=== PATIENT | female | born 1955 | race Caucasian/White ===

== ENCOUNTER 2016-07-03 08:10 | Outpatient (CLI) | payer OTHER | END 2016-07-03 08:11 | DX: I10 Essential (primary) hypertension (principal); E78.5 Hyperlipidemia, unspecified; E03.9 Hypothyroidism, unspecified ==

== ENCOUNTER 2016-09-19 08:20 | Outpatient (CLI) | payer OTHER ==
--- NOTE | 2016-09-19 11:32 | Ultrasound Report ---
COMPLETE ABDOMINAL ULTRASOUND: 09/19/2016 CLINICAL HISTORY: Elevated liver enzymes. COMPARISON: 01/13/2010 FINDINGS: The liver demonstrates mildly hyperechoic homogeneous parenchymal pattern consistent with benign fatty infiltration of the liver. There is an area of fat sparing adjacent to the gallbladder. This was seen on preceding exam. It is unchanged and measures 0.5 cm. Liver length is 18.3 cm. Gallbladder shows no wall thickening or calculi. Common bile duct measures 5 mm and is within normal limits. Pancreas is normal. Right kidney measures 10.9 cm. There is a small echogenic structure within the anterior inferior asp ect of the right kidney that measures 2-3 mm. It shows a twinkling artifact on color Doppler and is, therefore, suspicious for a tiny calculus. Left kidney measures 11 cm and once again shows a normal column of Sarwat upper and lower pole moieties of a duplicated pyelocaliceal system. Spleen is within normal limits with a length of 10.7 cm. Abdominal aorta shows no aneurysm. It has normal diameters throughout its extent. Inferior vena cav a appears normal. IMPRESSION: 1. NO CHANGE IS NOTED COMPARED TO PRECEDING ULTRASOUND OF 01/13/2010 WITH MILD HEPATOMEGALY RELAT ED TO BENIGN FATTY INFILTRATION OF THE LIVER. 2. SUGGESTION OF A 2-3 MM CALCULUS IN THE ANTERIOR INFERIOR ASPECT OF THE RIGHT KIDNEY. :9 JOB #: [id number] EXT JOB #:[id number]
== END 2016-09-19 08:21 | disposition home or self-care (01) ==
LOC: DI 08:20
PROVIDERS: ATTEND Family Medicine
DX: K76.0 Fatty (change of) liver, not elsewhere classified (principal)
CPT/HCPCS: 76700

== ENCOUNTER 2016-10-27 08:25 | Outpatient (CLI) | payer OTHER ==
--- NOTE | 2016-10-30 16:19 | Mammography Report ---
DIGITAL SCREENING MAMMOGRAM: 10/27/2016 CLINICAL INDICATION: A 61-year-old nulliparous patient, for screening. COMPARISON: 12/2014, 02/2011, 12/2009, 12/2008, 12/2007, 11/2006. TECHNIQUE: Routine CC and MLO projections were obtained of the breasts. FINDINGS: Parenchymal tissue within the breasts is predominantly fatty replaced. There are no domina nt masses, suspicious microcalcifications, or secondary signs of malignancy. In comparison to the pre vious studies, there are no significant changes. IMPRESSION: NO MAMMOGRAPHIC EVIDENCE OF MALIGNANCY. NO SIGNIFICANT INTERVAL CHANGES. RECOMMENDATION: Screening mammography is recommended annually. BIRADS category 1 - negative. STANDARD QUALIFYING STATEMENTS 1. This examination was reviewed with the aid of Computed-Aided Detection (CAD). 2. A negative or benign imaging report should not delay biopsy if clinically suspicious findings are present. Consider surgical consultation if warranted. More than 5% of cancers are not identified by i maging. 3. Dense breasts may obscure an underlying neoplasm. JOB #: [id number] EXT JOB #:[id number]
== END 2016-10-27 08:26 | disposition home or self-care (01) ==
LOC: DI 08:25
PROVIDERS: ATTEND Family Medicine
DX: Z12.31 Encounter for screening mammogram for malignant neoplasm of breast (principal)
CPT/HCPCS: 77067

== ENCOUNTER 2017-03-29 09:59 | Day surgery (SDC) | payer OTHER ==
[2017-03-29] MEDS ORDERED: LACTATED RINGERS 1,000 ML IV ONE (10:54)
[2017-03-29] MEDS ORDERED: MIDAZOLAM 2 MG/2 ML VIAL IVP ONE (11:50)
[2017-03-29] MEDS ORDERED: fentaNYL 100 MCG/2 ML VIAL IVP ONE (11:50)
[2017-03-29 12:48] VITALS: BP 137/66
== END 2017-03-29 10:00 | disposition home or self-care (01) ==
LOC: SDS 09:59
PROVIDERS: ATTEND Surgery
PROC: 0DJD8ZZ Inspection of Lower Intestinal Tract, Via Natural or Artificial Opening Endoscopic (ICD-10-PCS; principal; 2017-03-29 11:30)
DX: Z12.11 Encounter for screening for malignant neoplasm of colon (principal); Z85.038 Personal history of other malignant neoplasm of large intestine; Z98.0 Intestinal bypass and anastomosis status; K64.8 Other hemorrhoids; I10 Essential (primary) hypertension; E78.5 Hyperlipidemia, unspecified
CPT/HCPCS: 45378; J7120

== ENCOUNTER 2018-06-19 07:20 | Outpatient (CLI) | payer OTHER ==
[2018-06-19 12:50] LABS: BASOPHILS % (AUTO) 0.5 %; EOSINOPHILS # (AUTO) 0.4 10^3/uL (0.0-0.7); HGB - HEMOGLOBIN 13.2 g/dL (12.0-16.0); LYMPHOCYTES % (AUTO) 35.2 %; MEAN CORPUSCULAR HEMOGLOBIN 31.1 pg (27.0-31.0); MEAN CORPUSCULAR HGB CONC 32.7 g/dL (32.0-36.0); MEAN CORPUSCULAR VOLUME 95.2 fL (81.0-99.0); MEAN PLATELET VOLUME 8.8 fL (7.9-10.8); MONOCYTES # (AUTO) 0.5 10^3/uL (0.0-1.0); MONOCYTES % (AUTO) 8.2 %; NEUTROPHILS # (AUTO) 2.7 10^3/uL (1.5-6.6); NEUTROPHILS % (AUTO) 48.1 %; PLT - PLATELET COUNT 207 10^3/uL (130-450); RED BLOOD COUNT 4.24 10^6/uL (4.20-5.40); RED CELL DISTRIBUTION WIDTH 13.1 % (12.0-15.0); WHITE BLOOD COUNT 5.6 x10^3/uL (4.8-10.8)
[2018-06-19 13:28] LABS: ALBUMIN 3.8 g/dL (3.2-5.5); ALBUMIN/GLOBULIN RATIO 1.3 (1.0-2.2); ALKALINE PHOSPHATASE 56 IU/L (42-121); ALT ALANINE AMINOTRANSFERASE 38 IU/L (10-60); AST ASPARTATE AMINOTRANSFERASE 38 IU/L (10-42); BILIRUBIN,TOTAL 0.4 mg/dL (0.2-1.0); BUN - BLOOD UREA NITROGEN 13 mg/dL (6-20); CARBON DIOXIDE - CO2 21 mmol/L (21-32); CHLORIDE 107 mmol/L (101-111); CHOL/HDL RATIO 3.5 (<4.4); CHOLESTEROL 138 mg/dL; CREATININE 0.3 mg/dL (0.4-1.0); GFR - MDRD 225 (>89); GLUCOSE 104 mg/dL (70-100); HDL CHOLESTEROL 40 mg/dL; LDL CHOLESTEROL,CALCULATED 80 mg/dL; SODIUM 139 mmol/L (135-145); TOTAL PROTEIN 6.7 g/dL (6.7-8.2); VLDL CHOLESTEROL 18 mg/dL
== END 2018-06-19 07:21 | disposition home or self-care (01) ==
LOC: LAB.WCP 07:20
PROVIDERS: ATTEND Family Medicine
DX: E78.5 Hyperlipidemia, unspecified (principal); E03.9 Hypothyroidism, unspecified; I10 Essential (primary) hypertension
CPT/HCPCS: 36415; 80053; 80061; 83721; 84443; 85025

== ENCOUNTER 2019-05-22 07:44 | Outpatient (CLI) | payer BC, OTHER ==
--- NOTE | 2019-05-26 13:18 | Mammography Report ---
Reason: ROUTINE MAMMO Procedure Date: 05/22/2019 Accession Number: [id number] / [id number] Procedure: [place] - Screening Mammo w/Mathew CPT Code: Final Report FULL RESULT: EXAM: Screening Mammo w/Amthew DATE: 05/22/2019 8:29 AM CLINICAL HISTORY: Screening encounter. History of nulliparity. TECHNIQUE: (B) - Bilateral CC and MLO views were obtained. A cleavage view is obtained. COMPARISON: 10/27/2016 through 01/13/2010. PARENCHYMAL PATTERN: (F) - The breast(s) demonstrate(s) diffuse fatty replacement. FINDINGS: There are no suspicious masses, calcifications, or areas of distortion. IMPRESSION: Negative examination. BI-RADS category 1. RECOMMENDATION: (ANNUAL) - Recommend routine annual screening mammography. BI-RADS CATEGORY: (1) - Negative. STANDARD QUALIFYING STATEMENTS: 1. This examination was not reviewed with the aid of Computer-Aided Detection (CAD). 2. A negative or benign imaging report should not preclude biopsy if clinically suspicious findings are present. 3. Dense breasts may obscure an underlying neoplasm. 4. This examination was reviewed with the aid of 3D breast imaging (tomosynthesis).
== END 2019-05-22 07:45 | disposition home or self-care (01) ==
LOC: DI 07:44
PROVIDERS: ATTEND Family Medicine
DX: Z12.31 Encounter for screening mammogram for malignant neoplasm of breast (principal)
CPT/HCPCS: 77063; 77067

== ENCOUNTER 2020-05-05 07:17 | Outpatient (CLI) | payer BC ==
[2020-05-05 08:08] LABS: BASOPHILS % (AUTO) 0.6 %; EOSINOPHILS # (AUTO) 0.4 10^3/uL (0.0-0.7); EOSINOPHILS % (AUTO) 6.1 %; HGB - HEMOGLOBIN 13.8 g/dL (12.0-16.0); LYMPHOCYTES # (AUTO) 2.1 10^3/uL (1.5-3.5); LYMPHOCYTES % (AUTO) 33.6 %; MEAN CORPUSCULAR HEMOGLOBIN 30.9 pg (27.0-31.0); MEAN CORPUSCULAR HGB CONC 32.2 g/dL (32.0-36.0); MEAN CORPUSCULAR VOLUME 96.2 fL (81.0-99.0); MEAN PLATELET VOLUME 9.8 fL (7.9-10.8); MONOCYTES # (AUTO) 0.6 10^3/uL (0.0-1.0); MONOCYTES % (AUTO) 9.3 %; NEUTROPHILS # (AUTO) 3.2 10^3/uL (1.5-6.6); NEUTROPHILS % (AUTO) 49.9 %; PLT - PLATELET COUNT 211 10^3/uL (130-450); RED BLOOD COUNT 4.46 10^6/uL (4.20-5.40); RED CELL DISTRIBUTION WIDTH 12.3 % (12.0-15.0); WHITE BLOOD COUNT 6.4 x10^3/uL (4.8-10.8)
[2020-05-05 08:15] LABS: ALBUMIN 4.2 g/dL (3.2-5.5); ALBUMIN/GLOBULIN RATIO 1.5 (1.0-2.2); ALKALINE PHOSPHATASE 64 IU/L (42-121); ALT ALANINE AMINOTRANSFERASE 53 IU/L (10-60); AST ASPARTATE AMINOTRANSFERASE 31 IU/L (10-42); BILIRUBIN,TOTAL 0.5 mg/dL (0.2-1.0); BUN - BLOOD UREA NITROGEN 17 mg/dL (6-20); CALCIUM 9.6 mg/dL (8.5-10.3); CARBON DIOXIDE - CO2 24 mmol/L (21-32); CHLORIDE 104 mmol/L (101-111); CHOL/HDL RATIO 3.5 (<4.4); CHOLESTEROL 149 mg/dL; CREATININE 0.8 mg/dL (0.4-1.0); GLUCOSE 103 mg/dL (70-100); HDL CHOLESTEROL 43 mg/dL; LDL CHOLESTEROL,CALCULATED 84 mg/dL; SODIUM 137 mmol/L (135-145); VLDL CHOLESTEROL 22 mg/dL
== END 2020-05-05 07:18 | disposition home or self-care (01) ==
LOC: LAB 07:17
PROVIDERS: ATTEND Family Medicine
DX: R74.8 Abnormal levels of other serum enzymes (principal); C18.7 Malignant neoplasm of sigmoid colon; I10 Essential (primary) hypertension; E78.5 Hyperlipidemia, unspecified; E03.9 Hypothyroidism, unspecified
CPT/HCPCS: 36415; 80053; 80061; 82378; 83721; 84443; 85025

== ENCOUNTER 2020-07-12 07:30 | Outpatient (CLI) | payer BC ==
--- NOTE | 2020-07-12 12:47 | Ultrasound Report ---
PROCEDURE: Abdomen Limited INDICATIONS: HERNIA TECHNIQUE: Real-time focused scanning was performed of the abdomen, with image documentation. COMPARISON: CT abdomen pelvis 02/02/2017 FINDINGS: Sonographic images at the level of the umbilicus demonstrate a periumbilical fat-containin g hernia. There also appears to be herniation of a nondilated bowel loop. Similar appearance was iden tified in 2017. IMPRESSION: Periumbilical hernia containing fat and nondilated bowel loop. Reviewed by: Quynh Echevarria MD on 07/12/2020 12:45 PM PDT Approved by: Quynh Echevarria MD on 07/12/2020 12:45 PM PDT Station ID: [id number]
== END 2020-07-12 07:31 | disposition home or self-care (01) ==
LOC: DI 07:30
PROVIDERS: ATTEND Nurse Practitioner Family
DX: K42.9 Umbilical hernia without obstruction or gangrene (principal)

== ENCOUNTER 2020-07-21 08:20 | Outpatient (CLI) | payer BC ==
--- NOTE | 2020-07-22 07:46 | Mammography Report ---
BILATERAL DIGITAL SCREENING MAMMOGRAM 3D/2D: 07/21/2020 CLINICAL: Routine screening. Comparison is made to exams dated: 05/22/2019 mammogram, 10/27/2016 mammogram, 12/29/2014 mammogram, 01/2011 mammogram, and 01/13/2010 mammogram - [facility]. The tissue of both breast s is predominantly fatty. No significant masses, calcifications, or other findings are seen in either breast. There has been no significant interval change. IMPRESSION: NEGATIVE There is no mammographic evidence of malignancy. A 1 year screening mammogram is recommended. This exam was interpreted at Station ID: [id number]. NOTE: For mammograms, a report in lay terms will be sent to the patient. Approximately 15% of breast malignancies will not be visualized mammographically. In the management of a palpable breast mass, a negative mammogram must not discourage biopsy of a clinically suspicious lesion. Electronically Signed By: Jose Ledesma M.D., jr/penrad:07/21/2020 09:30:48 ACR BI-RADS Category 1: Negative 3341F PARENCHYMAL PATTERN: (F) - The breast(s) demonstrate(s) diffuse fatty replacement. BI-RADS CATEGORY: (1) - 1 RECOMMENDATION: (ANNUAL) - Recommend routine annual screening mammography. [id number] 1 year screening LATERALITY: (B)
== END 2020-07-21 08:21 | disposition home or self-care (01) ==
LOC: DI.N 08:20
DX: Z12.31 Encounter for screening mammogram for malignant neoplasm of breast (principal)

== ENCOUNTER 2021-03-14 06:09 | Day surgery (SDC) | payer BC ==
[2021-03-14] MEDS ORDERED: CEFAZOLIN SODIUM IN 0.9 % NACL 2 GM/100 ML BAG IV ONE (06:20)
[2021-03-14] MEDS ORDERED: LACTATED RINGERS 1,000 ML IV ONE ×2 (06:21→09:45)
[2021-03-14] MEDS ORDERED: MIDAZOLAM 2 MG/2 ML VIAL ONE (07:02)
[2021-03-14] MEDS ORDERED: fentaNYL 100 MCG/2 ML VIAL ONE ×2 (07:02→09:32)
[2021-03-14] MEDS ORDERED: PROPOFOL 200 MG/20 ML VIAL IVP ONE (07:03)
[2021-03-14] MEDS ORDERED: LIDOCAINE-MPF 2% 5 ML VIAL ONE (07:03)
[2021-03-14] MEDS ORDERED: ROCURONIUM 50 MG/5 ML VIAL ONE (07:03)
--- NOTE | 2021-03-14 07:14 | ANESTHESIA ---
Pre-Anesthesia VS, & Labs - Diagnosis Incisional hernia - Procedure laparoscopic incisional hernia repair Vital Signs: Temp Pulse Resp BP Pulse Ox 36.7 C 61 20 161/70 H 95 03/14/21 06:32 03/14/21 06:32 03/14/21 06:32 03/14/21 06:32 03/14/21 06:32 Height: 5 ft 5 in Weight (kg): 111.3 kg Body Mass Index: 40.8 BMI Classification: Morbidly Obese - NPO >8 hours - Is Patient ?: No - Lab Results Lab results reviewed: Yes Home Medications and Allergies Atorvastatin Calcium 20 mg PO DAILY 09/09/12 Levothyroxine [Synthroid] 50 mcg PO QDAC 09/09/12 lisinopriL [Prinivil] 20 mg PO DAILY 09/09/12 Multivitamin [Multi-Vitamin Daily] 1 each PO DAILY 08/26/13 Allergies/Adverse Reactions: Allergies Allergy/AdvReac Type Severity Reaction Status Date / Time No Known Drug Allergies Allergy Verified 03/14/21 06:56 Anes History & Medical History - Anesthetic History Anesthesia Complications: reports: No previous complications Family history of Anesthesia Complications: Denies Family history of Malignant Hyperthermia: Denies - Medical History Cardiovascular: reports: Hypertension, High cholesterol Pulmonary: reports: None Gastrointestinal: reports: Colon polyps, Chronic diarrhea, Chronic constipation, Other Urinary: reports: Incontinence Musculoskeletal: reports: None Endocrine/Autoimmune: reports: HyPOthyroidism Skin: reports: Eczema, Rosacea - Surgical History General: reports: Appendectomy, Bowel surgery, Colonoscopy Eyes Ears Nose Throat (EENT): reports: Other Exam General: Alert, Oriented x3, Cooperative Dental: WNL Mouth Openin Fingerbreadth Neck Mobility: Normal Mallampati classification: III Thyromental Distance: 4-6 cm Respiratory: Lungs clear, Normal breath sounds, No respiratory distress Cardiovascular: Regular rate Neurological: Normal speech Mental/Cognitive Status: Alert/Oriented X3, Normal for patient Cognitive Status: Within normal limits Plan Anesthesia Type: General Consent for Procedure(s) Verified and Reviewed: Yes Code Status: Attempt Resuscitation ASA classification: 2-Mild systemic disease Is this case an emergency?: No
[2021-03-14] MEDS ORDERED: BUPIVACAINE 0.5% PF 10 ML VIAL ONE (07:20)
[2021-03-14] MEDS ORDERED: LIDOCAINE 2%-EPI 1:100000 20 ML MDV ONE (07:20)
[2021-03-14] MEDS ORDERED: DEXAMETHASONE 4 MG/ML VIAL ONE (08:23)
[2021-03-14] MEDS ORDERED: ONDANSETRON 4 MG/2 ML VIAL ONE (08:23)
[2021-03-14] MEDS ORDERED: METOCLOPRAMIDE 10 MG/2 ML VIAL IVP PRN (08:29)
[2021-03-14] MEDS ORDERED: ePHEDrine 50 MG/ML VIAL IVP PRN (08:29)
[2021-03-14] MEDS ORDERED: HYDROmorphone 0.5 MG/0.5 ML SYRINGE IVP PRN ×2 (08:29→14:30)
[2021-03-14] MEDS ORDERED: MORPHINE 2 MG/ML CARPUJECT IVP PRN (08:29)
[2021-03-14] MEDS ORDERED: NALOXONE 0.4 MG/ML VIAL IVP PRN (08:29)
[2021-03-14] MEDS ORDERED: fentaNYL 100 MCG/2 ML VIAL IVP PRN (08:29)
[2021-03-14] MEDS ORDERED: ATROPINE ABBOJECT 1 MG/10 ML SYRINGE IVP PRN (08:29)
[2021-03-14] MEDS ORDERED: ONDANSETRON 4 MG/2 ML VIAL IVP PRN ×2 (08:29→09:48)
[2021-03-14] MEDS ORDERED: ceFAZolin 1 GM VIAL ONE (08:40)
[2021-03-14] MEDS ORDERED: PHENYLEPHRINE 10 MG/ML VIAL ONE (08:47)
[2021-03-14] MEDS ORDERED: SUGAMMADEX 200 MG/2 ML VIAL IVP ONE (08:51)
[2021-03-14] MEDS ORDERED: LACTATED RINGERS 1,000 ML IV SCH (09:00)
[2021-03-14] MEDS ORDERED: ceFAZolin 1 GM VIAL IR ONE (09:11)
[2021-03-14] MEDS ORDERED: BUPIVACAINE 0.5% PF 10 ML VIAL SUBQ ONE (09:21)
[2021-03-14] MEDS ORDERED: LIDOCAINE MPF 2%-EPI 1:200000 20 ML VIAL SUBQ ONE (09:22)
[2021-03-14] MEDS ORDERED: KETOROLAC 30 MG/ML VIAL ONE (09:30)
--- NOTE | 2021-03-14 09:41 | OPERATIVE REPORT ---
Operative Report - General Procedure Date: 03/14/21 Planned Procedure: Lap Incisional Hernia Repair Pre-Op Diagnosis: Incisional Hernia Procedure Performed: Incisional Hernia Repair with Ventralight Mesh Post Op Diagnosis: Incisional Hernia - Procedure Note Primary Surgeon: Dougie Anesthesia Provider: JUJU Parra Pathology: None Estimated Blood Loss (mL): 10 Indications: Painful incisional hernia Findings: 4 cm umbilical defect containing omentum and a loop of small bowel Complications: None apparent - Other Other Information/Narrative: After obtaining informed consent, the patient was brought to the operating room and placed in the supine position on the operating table. Following successful induction of general endotracheal anesthesia, appropriate padding of all bony prominences and placement of appropriate monitors, the abdomen was prepped and draped in the standard surgical fashion. A Time Out was held per SCOPE protocol. All elements of the surgical safety checklist were followed before, during, and after the procedure. Following infiltration with local anesthetic to create a field block, an incision was create directly over the hernia near the umbilicus and carried through the skin and subcutaneous tissue to reveal the hernia sack and contents. Within this large hernia sack which was entered cautiously and without any inadvertent viscus injury, we noted a knuckle of small bowel and a portion of preperitoneal fat. With great care, this tissue was teased sharply from the surrounding structures using both scalpel and Metzenbaum scissors. The bowel appeared well vascularized and fully viable. The fascia was then dissected to its respective components to allow for the ultimate primary intraperitoneal repair. This procedure was selected due the size of the hernia and the patient's body habitus. A 12 mm trocar was placed through the defect and the abdomen was insufflated to 15mm of Hg pressure. The camera was placed in the abdominal cavity. DIagnostic laparoscopy revealed right upper quadrant and suprapubic adhesions an periumbilical adhesions. These were addressed sharply with laparoscopic scissors until the internal surface of the abdominal wall was free from adhesions with an appropriate surface for mesh placement. Following infiltration with local anesthetic, 4 5mm trocars were placed peripherally. One was placed in each upper quadrant and one in each lower quadrant under direct vision. A [employer] Ventralight ST 15 cm circlular implant was chosen for repair. It was rolled and placed through the centrally placed 12 mm port. The peripheral ports were utilized to straighten and flatten the mesh up against the abdominal wall. The scaffold suture was pulled taut via the 12 mm port and we noted good apposition of the mesh to the anterior abdominal wall. The mesh was then fixed to the abdominal wall with absorbable tacks, 30 in total. THis was performed sequentially through the 4 peripheral trocars in a 360 degree fashion. The scaffold suture was then released and the scaffolding removed via the right upper quadrant port. The abdomen was checked for hemostasis. It was irrigated with warm saline solution and aspirated free of all fluid and particulate matter. The trocars were then removed under direct vision and the abdomen was desufflated. The midline wound protector and trocar were then removed. This left a 4 cm defect with straight flat mesh at the base. The fascia was closed with interrupted 0 PDS sutures and the umbilicus reconstructed with 3-0 vicryl. The skin incisions were closed with monocryl and Dermabond was applied to the surface of all incisions. All sponge, needle, and instrument counts were correct at the conclusion of the case. The patient was allowed to awaken from anesthesia without difficulty and taken to the post anesthesia care unit in good condition.
[2021-03-14] MEDS ORDERED: oxyCODONE 5 MG TABLET PO PRN (09:48)
[2021-03-14] MEDS ORDERED: IBUPROFEN 600 MG TABLET PO PRN (09:48)
[2021-03-14] MEDS ORDERED: HYDROmorphone 0.5 MG/0.5 ML SYRINGE ONE (10:30)
--- NOTE | 2021-03-14 10:30 | ANESTHESIA POST OP EVALUATION ---
Anesthesia Post Eval - Post Anesthesia Eval Vitals: Last Vital Signs Temp 36.4 C L 03/14/21 10:15 Pulse 74 03/14/21 10:21 Resp 16 03/14/21 10:21 BP 129/59 L 03/14/21 10:21 Pulse Ox 95 03/14/21 10:21 CV Function Including HR & BP: Stable Pain Control: Satisfactory Nausea & Vomiting: Negative Mental Status: Baseline Respiratory Status: Airway Patent Hydration Status: Satisfactory Anesthesia Complications: None
[2021-03-14] MEDS: ACETAMINOPHEN 325 MG TABLET PO PRN ×2 (11:32→17:04)
[2021-03-14] MEDS ORDERED: KETOROLAC 30 MG/ML VIAL IVP PRN (14:13)
[2021-03-14] MEDS ORDERED: SODIUM CHLORIDE FLUSH 0.9% 10 ML SYRINGE IVP PRN (14:13)
--- NOTE | 2021-03-14 18:17 | PHARMACY PROGRESS NOTE ---
- Best Possible Medication History Admit Date and Time: Processed by: Nursing Medication History completed: Yes As the person ultimately responsible for medication therapy, providers are able to order a medication from an existing home medication list in [facility] via the "Reconcile Routine" prior to Confirmation of that medication by intelligence support officer. Such practice is discouraged except when the physician, in their clinical judgment, deems that a medical need exists for a medication without regard to previous use.
[2021-03-14] MEDS: SODIUM CHLORIDE FLUSH 0.9% 10 ML SYRINGE IVP SCH (18:47)
[2021-03-14] MEDS ORDERED: ATORVASTATIN 10 MG TABLET PO SCH (21:00)
[2021-03-15] MEDS: SODIUM CHLORIDE FLUSH 0.9% 10 ML SYRINGE IVP SCH ×2 (01:50→08:09)
[2021-03-15] MEDS: ACETAMINOPHEN 325 MG TABLET PO PRN (06:51)
[2021-03-15] MEDS ORDERED: PANTOPRAZOLE 40 MG TABLET PO SCH (07:00)
[2021-03-15] MEDS ORDERED: LEVOTHYROXINE 25 MCG TABLET PO SCH (07:00)
[2021-03-15] MEDS ORDERED: lisinopriL 20 MG TABLET PO SCH (09:00)
[2021-03-15] MEDS ORDERED: ENOXAPARIN 40 MG/0.4 ML SYRINGE SUBQ SCH (09:00)
--- NOTE | 2021-03-15 10:04 | Discharge Plan ---
Discharge Plan Problem Reviewed?: Yes Disposition: Home, Self Care Condition: Stable Prescriptions: oxyCODONE [Roxicodone] 5 mg PO Q4HR PRN #14 tablet PRN Reason: Pain Docusate Sodium 100Mg Capsule [Colace 100Mg Capsule] 200 mg PO DAILY #20 cap oxyCODONE [Roxicodone] 5 mg PO Q4-6H PRN #20 tablet PRN Reason: Pain Ondansetron Odt [Zofran Odt] 4 mg TL Q6H PRN #10 tablet PRN Reason: Nausea / Vomiting Diet: Regular Activity Restrictions: Additional Comments (5 pound lifting limit for 2 weeks) Shower Restrictions: No Driving Restrictions: Yes (Not while using narcotic meds) No Smoking: If you smoke, Please STOP! Call for help. Follow-up with: Kathy Munoz ARNP [Primary Care Provider] - Nazanin Constantino MD [Provider Admit Priv/Credential] -
--- NOTE | 2021-03-15 10:08 | DISCHARGE SUMMARY ---
"Discharge Summary Admit Date: 03/15/21 Discharge Date: 03/15/21 Discharging Provider: Dougie Primary Care Provider: Alexander Code Status: Attempt Resuscitation Condition at Discharge: Stable Discharge Disposition: 01 Home, Self Care - DIAGNOSES Admission Diagnoses: Incisional hernia Discharge Diagnoses with Status of Each Condition: Resolved - HPI History of Present Illness: Admitted yesterday for laparoscopic incisional hernia repair. Surgery was uneventful. Patient was admitted overnight for pain control and observation. - CONSULTS | PROCEDURES Procedures: Laparoscopic incisional hernia repair - HOSPITAL COURSE Hospital Course: Kathy has done very well. She is taking minimal pain medication and tolerating a regular diet. She has been walking the halls and is without nausea. She has been eating raisins which is her usual choice for stool softener. - ALLERGIES Allergies/Adverse Reactions: Allergies Allergy/AdvReac Type Severity Reaction Status Date / Time No Known Drug Allergies Allergy Verified 03/14/21 06:56 - MEDICATIONS Home Medications: Ambulatory Orders Medication Instructions Recorded Confirmed Atorvastatin Calcium 20 mg PO DAILY 09/09/12 03/14/21 Levothyroxine [Synthroid] 50 mcg PO QDAC 09/09/12 03/14/21 lisinopriL [Prinivil] 20 mg PO DAILY 09/09/12 03/14/21 Multivitamin [Multi-Vitamin Daily] 1 each PO DAILY 08/26/13 03/14/21 Docusate Sodium 100Mg Capsule 200 mg PO DAILY #20 cap 03/14/21 [Colace 100Mg Capsule] Ondansetron Odt [Zofran Odt] 4 mg TL Q6H PRN #10 tablet 03/14/21 oxyCODONE [Roxicodone] 5 mg PO Q4-6H PRN #20 tablet 03/14/21 Acetaminophen [Tylenol] 650 mg PO Q6H PRN tablet 03/15/21 Ibuprofen [Motrin] 600 mg PO Q6HR PRN tablet 03/15/21 oxyCODONE [Roxicodone] 5 mg PO Q4HR PRN #14 tablet 03/15/21 - PHYSICAL EXAM AT DISCHARGE General Appearance: positive: No acute distress, Alert Eyes Bilateral: positive: Normal inspection, PERRL, EOMI ENT: positive: ENT inspection nml, Pharynx nml, No signs of dehydration Neck: positive: Nml inspection, Thyroid nml, No JVD Respiratory: positive: Chest non-tender, No respiratory distress, Breath sounds nml Cardiovascular: positive: Regular rate & rhythm, No murmur Abdomen: positive: Nml bowel sounds, Tenderness (Appropriately tender in the post operative state) Skin: positive: Color nml Neurologic/Psychiatric: positive: Oriented x3 - QUALITY (Female Hip Fx Only) Was patient sent home on osteoporosis medication?: No - FOLLOW UP Follow Up: [address] Constantino - TIME SPENT Time Spent in Discharge (Minutes): 20"
[2021-03-15 10:48] VITALS: BP 157/63
== END 2021-03-15 11:07 | disposition home or self-care (01) ==
LOC: SDS 06:09 → MS2 10:50 → SDS 03-15 11:07
PROVIDERS: ATTEND Surgery
DX: K43.2 Incisional hernia without obstruction or gangrene (principal); E66.01 Morbid (severe) obesity due to excess calories; Z68.41 Body mass index [BMI] 40.0-44.9, adult
CPT/HCPCS: 49654; A9270; C1781; J0690; J1170; J1650; J7120

== ENCOUNTER 2021-05-09 08:00 | Outpatient (CLI) | payer BC ==
[2021-05-09 11:48] LABS: BASOPHILS % (AUTO) 0.5 %; EOSINOPHILS # (AUTO) 0.5 10^3/uL (0.0-0.7); HCT - HEMATOCRIT 41.7 % (37.0-47.0); HGB - HEMOGLOBIN 13.3 g/dL (12.0-16.0); LYMPHOCYTES # (AUTO) 2.2 10^3/uL (1.5-3.5); LYMPHOCYTES % (AUTO) 34.4 %; MEAN CORPUSCULAR HEMOGLOBIN 30.5 pg (27.0-31.0); MEAN CORPUSCULAR HGB CONC 31.9 g/dL (32.0-36.0); MEAN CORPUSCULAR VOLUME 95.6 fL (81.0-99.0); MEAN PLATELET VOLUME 10.3 fL (7.9-10.8); MONOCYTES # (AUTO) 0.6 10^3/uL (0.0-1.0); MONOCYTES % (AUTO) 9.5 %; NEUTROPHILS # (AUTO) 3.1 10^3/uL (1.5-6.6); NEUTROPHILS % (AUTO) 48.4 %; PLT - PLATELET COUNT 215 10^3/uL (130-450); RED BLOOD COUNT 4.36 10^6/uL (4.20-5.40); RED CELL DISTRIBUTION WIDTH 12.3 % (12.0-15.0); WHITE BLOOD COUNT 6.4 x10^3/uL (4.8-10.8)
[2021-05-09 12:27] LABS: ALBUMIN 4.2 g/dL (3.2-5.5); ALBUMIN/GLOBULIN RATIO 1.4 (1.0-2.2); ALKALINE PHOSPHATASE 62 IU/L (42-121); ALT ALANINE AMINOTRANSFERASE 47 IU/L (10-60); AST ASPARTATE AMINOTRANSFERASE 31 IU/L (10-42); BILIRUBIN,TOTAL 0.6 mg/dL (0.2-1.0); BUN - BLOOD UREA NITROGEN 16 mg/dL (6-20); CALCIUM 9.6 mg/dL (8.5-10.3); CARBON DIOXIDE - CO2 26 mmol/L (21-32); CHLORIDE 104 mmol/L (101-111); CHOL/HDL RATIO 3.4 (<4.4); CHOLESTEROL 158 mg/dL; CREATININE 0.8 mg/dL (0.4-1.0); GFR - MDRD 72 (>89); GLUCOSE 98 mg/dL (70-100); HDL CHOLESTEROL 46 mg/dL; LDL CHOLESTEROL,CALCULATED 92 mg/dL; POTASSIUM 4.2 mmol/L (3.5-5.0); SODIUM 139 mmol/L (135-145); TOTAL PROTEIN 7.1 g/dL (6.7-8.2); TRIGLYCERIDES 100 mg/dL; VLDL CHOLESTEROL 20 mg/dL
[2021-05-09 12:38] LABS: THYROID STIMULATING HORMONE 3.8 uIU/mL (0.34-5.60)
== END 2021-05-09 23:59 ==
LOC: LAB.WCP 08:00
PROVIDERS: ATTEND Nurse Practitioner Family
DX: R74.8 Abnormal levels of other serum enzymes (principal); C18.7 Malignant neoplasm of sigmoid colon; I10 Essential (primary) hypertension; E78.5 Hyperlipidemia, unspecified; E03.9 Hypothyroidism, unspecified
CPT/HCPCS: 36415; 80053; 80061; 82378; 83721; 84443; 85025

== ENCOUNTER 2022-07-12 07:16 | Outpatient (CLI) | payer OTHER ==
[2022-07-12 07:38] LABS: BASOPHILS % (AUTO) 0.3 %; EOSINOPHILS # (AUTO) 0.5 10^3/uL (0.0-0.7); EOSINOPHILS % (AUTO) 8.1 %; HCT - HEMATOCRIT 40.9 % (37.0-47.0); HGB - HEMOGLOBIN 13.2 g/dL (12.0-16.0); LYMPHOCYTES # (AUTO) 2.1 10^3/uL (1.5-3.5); LYMPHOCYTES % (AUTO) 33.8 %; MEAN CORPUSCULAR HEMOGLOBIN 30.9 pg (27.0-31.0); MEAN CORPUSCULAR HGB CONC 32.3 g/dL (32.0-36.0); MEAN CORPUSCULAR VOLUME 95.8 fL (81.0-99.0); MEAN PLATELET VOLUME 9.7 fL (7.9-10.8); MONOCYTES # (AUTO) 0.6 10^3/uL (0.0-1.0); MONOCYTES % (AUTO) 8.8 %; NEUTROPHILS # (AUTO) 3.1 10^3/uL (1.5-6.6); NEUTROPHILS % (AUTO) 48.7 %; PLT - PLATELET COUNT 216 10^3/uL (130-450); RED BLOOD COUNT 4.27 10^6/uL (4.20-5.40); RED CELL DISTRIBUTION WIDTH 12.4 % (12.0-15.0); WHITE BLOOD COUNT 6.3 x10^3/uL (4.8-10.8)
[2022-07-12 07:51] LABS: ALBUMIN 3.8 g/dL (3.2-5.5); ALBUMIN/GLOBULIN RATIO 1.2 (1.0-2.2); ALKALINE PHOSPHATASE 60 IU/L (42-121); ALT ALANINE AMINOTRANSFERASE 47 IU/L (10-60); AST ASPARTATE AMINOTRANSFERASE 33 IU/L (10-42); BILIRUBIN,TOTAL 0.3 mg/dL (0.2-1.0); BUN - BLOOD UREA NITROGEN 15 mg/dL (6-20); CALCIUM 9.3 mg/dL (8.5-10.3); CARBON DIOXIDE - CO2 26 mmol/L (21-32); CHLORIDE 106 mmol/L (101-111); CHOL/HDL RATIO 3.3 (<4.4); CHOLESTEROL 151 mg/dL; CREATININE 0.8 mg/dL (0.4-1.0); GFR - MDRD 72 (>89); GLUCOSE 103 mg/dL (70-100); HDL CHOLESTEROL 46 mg/dL; LDL CHOLESTEROL,CALCULATED 86 mg/dL; LDL/HDL RATIO 1.9 (<4.4); POTASSIUM 4.3 mmol/L (3.5-5.0); SODIUM 139 mmol/L (135-145); TRIGLYCERIDES 94 mg/dL; VLDL CHOLESTEROL 19 mg/dL
[2022-07-12 08:00] LABS: THYROID STIMULATING HORMONE 4.51 uIU/mL (0.34-5.60)
== END 2022-07-12 07:17 | disposition home or self-care (01) ==
LOC: LAB 07:16
PROVIDERS: ATTEND Nurse Practitioner
DX: E78.5 Hyperlipidemia, unspecified (principal); Z85.038 Personal history of other malignant neoplasm of large intestine; E03.9 Hypothyroidism, unspecified
CPT/HCPCS: 36415; 80053; 80061; 82378; 83721; 84443; 85025

== ENCOUNTER 2022-08-15 12:36 | Outpatient (CLI) | payer OTHER ==
--- NOTE | 2022-08-17 10:49 | Mammography Report ---
BILATERAL DIGITAL SCREENING MAMMOGRAM 3D/2D: 08/15/2022 CLINICAL: Routine screening. Comparison is made to exams dated: 07/21/2020 mammogram, 05/22/2019 mammogram, 10/27/2016 mammogram, an d 12/29/2014 mammogram - [facility]. Both breasts are almost entirely fatty (category a/<25% glandular tissue). No significant masses, calcifications, or other findings are seen in either breast. There has been no significant interval change. IMPRESSION: NEGATIVE There is no mammographic evidence of malignancy. A 1 year screening mammogram is recommended. Based on the Tyrer Cuzick model (a risk assessment model) the patients lifetime risk is 4.6% and her 10 year risk is 2.3%. According to the ACR, ACS, and NCCN guidelines, an annual breast MRI exam inocencio g with mammogram is recommended if the patients lifetime risk is 20% or greater. This exam was interpreted at Station ID: [id number]. NOTE: For mammograms, a report in lay terms will be sent to the patient. Approximately 15% of breast malignancies will not be visualized mammographically. In the management of a palpable breast mass, a negative mammogram must not discourage biopsy of a clinically suspicious lesion. Electronically Signed By: Arron christian/dewey:08/16/2022 09:50:02 letter sent: No_Letter ACR BI-RADS Category 1: Negative 3341F PARENCHYMAL PATTERN: (F) - The breast(s) demonstrate(s) diffuse fatty replacement. BI-RADS CATEGORY: (1) - 1 Mammogram [id number] 1 year screening LATERALITY: (B)
== END 2022-08-15 12:37 | disposition home or self-care (01) ==
LOC: DI 12:36
PROVIDERS: ATTEND Nurse Practitioner
DX: Z12.31 Encounter for screening mammogram for malignant neoplasm of breast (principal)

== ENCOUNTER 2022-08-15 12:38 | Outpatient (CLI) | payer OTHER ==
--- NOTE | 2022-08-15 15:31 | DEXA Report ---
PROCEDURE: Dexa Spine and/or Hip INDICATIONS: POST MENOPAUSAL TECHNIQUE: Dual energy x-ray absorptiometry (DXA) was performed on a [employer] System. Regions measur ed are the AP Spine, femoral neck, and if needed forearm. COMPARISON: None. FINDINGS: Lumbar Spine: Bone Mineral Density 1.153 g/cm/cm,T score -0.2, normal Left Femoral Neck: Bone Mineral Density 0.777 g/cm/cm, T score -1.9, osteopenia Left Hip: Bone Mineral Density 0.897 g/cm/cm,T score -0.9, normal (T score greater or equal to -1.0: NORMAL) (T score from -1.1 to -2.4: OSTEOPENIA) (T score less than or equal to -2.5 to: OSTEOPOROSIS) Impression: Osteopenia Patients with diagnosis of osteoporosis or osteopenia should have regular bone mineral density assess ment. For those eligible for Medicare, routine testing is allowed once every 2 years. Testing frequ ency can be increased for patients who have rapidly progressing disease or for those who are receivin g medical therapy to restore bone mass. Reviewed by: James Rivera MD on 08/15/2022 2:29 PM ELVIS Approved by: James Rivera MD on 08/15/2022 2:29 PM AKJENNY Station ID: [id number]
== END 2022-08-15 12:39 | disposition home or self-care (01) ==
LOC: DI 12:38
PROVIDERS: ATTEND Nurse Practitioner
DX: M85.88 Other specified disorders of bone density and structure, other site (principal)

== ENCOUNTER 2023-06-07 07:11 | Day surgery (SDC) | payer OTHER ==
[2023-06-07] MEDS: LACTATED RINGERS 1,000 ML IV ONE (07:38)
--- NOTE | 2023-06-07 08:13 | ANESTHESIA ---
Pre-Anesthesia VS, & Labs - Diagnosis history of colon cancer - Procedure colonoscopy Vital Signs: Temp Pulse Resp BP Pulse Ox O2 Flow Rate 36.3 C L 68 12 157/81 H 100 06/07/23 07:30 06/07/23 07:30 06/07/23 07:30 06/07/23 07:30 06/07/23 07:30 Height: 5 ft 6 in Weight (kg): 104 kg Body Mass Index: 37.0 BMI Classification: Obese - NPO >8 hours - Is Patient ?: No Home Medications and Allergies Atorvastatin Calcium 20 mg PO DAILY 09/09/12 Levothyroxine [Synthroid] 50 mcg PO QDAC 09/09/12 lisinopriL [Prinivil] 20 mg PO DAILY 09/09/12 Multivitamin [Multi-Vitamin Daily] 1 each PO DAILY 08/26/13 Allergies/Adverse Reactions: Allergies Allergy/AdvReac Type Severity Reaction Status Date / Time No Known Drug Allergies Allergy Verified 03/14/21 06:56 Anes History & Medical History - Anesthetic History Anesthesia Complications: reports: No previous complications - Medical History Cardiovascular: reports: Hypertension, High cholesterol Pulmonary: reports: None Gastrointestinal: reports: Colon polyps Urinary: reports: Incontinence Neuro: reports: None Musculoskeletal: reports: None Endocrine/Autoimmune: reports: HyPOthyroidism Skin: reports: Rosacea Smoking Status: Former smoker (quit 08/1998) Psychosocial: reports: No issues indicated History of Cancer?: Yes (colonoscopy) - Surgical History General: reports: Appendectomy, Bowel surgery, Colonoscopy, Other Eyes Ears Nose Throat (EENT): reports: Other Exam General: Alert, Oriented x3, Cooperative, No acute distress Dental: WNL Mouth Openin Fingerbreadth Neck Mobility: Normal Mallampati classification: III Thyromental Distance: 4-6 cm Mental/Cognitive Status: Alert/Oriented X3, Normal for patient Plan Anesthesia Type: General, Total IV Consent for Procedure(s) Verified and Reviewed: Yes Code Status: Attempt Resuscitation ASA classification: 2-Mild systemic disease Is this case an emergency?: No
[2023-06-07] MEDS ORDERED: PROPOFOL 500 MG/50 ML 500 MG/50 ML VIAL ONE (08:25)
[2023-06-07] MEDS: LACTATED RINGERS 500 ML IV ONE (08:55)
[2023-06-07 09:07] VITALS: O2SAT 98
--- NOTE | 2023-06-07 09:13 | ANESTHESIA POST OP EVALUATION ---
Anesthesia Post Eval - Post Anesthesia Eval Vitals: Last Vital Signs Temp 36.0 C L 06/07/23 09:10 Pulse 63 06/07/23 09:10 Resp 16 06/07/23 09:10 BP 127/71 06/07/23 09:10 Pulse Ox 98 06/07/23 09:10 O2 Flow Rate CV Function Including HR & BP: Stable Pain Control: Satisfactory Nausea & Vomiting: Negative Mental Status: Baseline Respiratory Status: Airway Patent Hydration Status: Satisfactory Anesthesia Complications: None
[2023-06-07 09:20] VITALS: BP 127/71
== END 2023-06-07 07:12 | disposition home or self-care (01) ==
LOC: SDS 07:11
PROVIDERS: ATTEND Surgery
DX: Z12.11 Encounter for screening for malignant neoplasm of colon (principal); Z85.038 Personal history of other malignant neoplasm of large intestine; I10 Essential (primary) hypertension; Z98.0 Intestinal bypass and anastomosis status; E66.9 Obesity, unspecified; Z68.37 Body mass index [BMI] 37.0-37.9, adult; Z87.891 Personal history of nicotine dependence
CPT/HCPCS: G0105; J7120

== ENCOUNTER 2023-07-26 06:57 | Outpatient (CLI) | payer OTHER ==
[2023-07-26 07:30] LABS: BASOPHILS % (AUTO) 0.4 %; EOSINOPHILS # (AUTO) 0.4 10^3/uL (0.0-0.7); EOSINOPHILS % (AUTO) 7.2 %; HCT - HEMATOCRIT 40.8 % (37.0-47.0); HGB - HEMOGLOBIN 13.4 g/dL (12.0-16.0); LYMPHOCYTES # (AUTO) 1.8 10^3/uL (1.5-3.5); LYMPHOCYTES % (AUTO) 35.8 %; MEAN CORPUSCULAR HEMOGLOBIN 31.3 pg (27.0-31.0); MEAN CORPUSCULAR HGB CONC 32.8 g/dL (32.0-36.0); MEAN CORPUSCULAR VOLUME 95.3 fL (81.0-99.0); MEAN PLATELET VOLUME 9.9 fL (7.9-10.8); MONOCYTES # (AUTO) 0.5 10^3/uL (0.0-1.0); MONOCYTES % (AUTO) 10.1 %; NEUTROPHILS # (AUTO) 2.3 10^3/uL (1.5-6.6); NEUTROPHILS % (AUTO) 46.3 %; PLT - PLATELET COUNT 210 10^3/uL (130-450); RED BLOOD COUNT 4.28 10^6/uL (4.20-5.40); RED CELL DISTRIBUTION WIDTH 12.5 % (12.0-15.0)
[2023-07-26 08:01] LABS: ALBUMIN/GLOBULIN RATIO 1.5 (1.0-2.2); ALKALINE PHOSPHATASE 69 IU/L (42-121); ALT ALANINE AMINOTRANSFERASE 47 IU/L (10-60); AST ASPARTATE AMINOTRANSFERASE 33 IU/L (10-42); BILIRUBIN,TOTAL 0.5 mg/dL (0.2-1.0); BUN - BLOOD UREA NITROGEN 12 mg/dL (6-20); CALCIUM 9.8 mg/dL (8.5-10.3); CARBON DIOXIDE - CO2 29 mmol/L (21-32); CHLORIDE 106 mmol/L (101-111); CHOL/HDL RATIO 3.5 (<4.4); CHOLESTEROL 144 mg/dL; CREATININE 0.8 mg/dL (0.6-1.3); GFR - MDRD 72 (>89); GLUCOSE 94 mg/dL (74-104); HDL CHOLESTEROL 41 mg/dL; LDL CHOLESTEROL,CALCULATED 75 mg/dL; LDL/HDL RATIO 1.8 (<4.4); POTASSIUM 4.3 mmol/L (3.5-4.5); SODIUM 138 mmol/L (135-145); TOTAL PROTEIN 6.7 g/dL (6.4-8.9); TRIGLYCERIDES 140 mg/dL (48-352); VLDL CHOLESTEROL 28 mg/dL
[2023-07-26 08:09] LABS: THYROID STIMULATING HORMONE 2.64 uIU/mL (0.34-5.60)
== END 2023-07-26 06:58 | disposition home or self-care (01) ==
LOC: LAB 06:57
PROVIDERS: ATTEND Nurse Practitioner
DX: I10 Essential (primary) hypertension (principal); E78.5 Hyperlipidemia, unspecified; E03.9 Hypothyroidism, unspecified
CPT/HCPCS: 36415; 80053; 80061; 83721; 84443; 85025

== ENCOUNTER 2023-08-29 08:30 | Outpatient (CLI) | payer OTHER ==
--- NOTE | 2023-08-30 11:00 | Mammography Report ---
BILATERAL DIGITAL SCREENING MAMMOGRAM 3D/2D: 08/29/2023 CLINICAL: Routine screening. Comparison is made to exams dated: 08/15/2022 mammogram, 07/21/2020 mammogram, 05/22/2019 mammogram, mammogram, and 12/29/2014 mammogram - [facility]. Both breasts are almost entirely fatty (category a/<25% glandular tissue). No significant masses, calcifications, or other findings are seen in either breast. There has been no significant interval change. IMPRESSION: NEGATIVE There is no mammographic evidence of malignancy. A 1 year screening mammogram is recommended. Based on the Tyrer Cuzick model (a risk assessment model) the patient's lifetime risk is 4.4% and her 10 year risk is 2.3%. According to the ACR, ACS, and NCCN guidelines, an annual breast MRI exam inocencio g with mammogram is recommended if the patient's lifetime risk is 20% or greater. This exam was interpreted at Station ID: [id number]. NOTE: For mammograms, a report in lay terms will be sent to the patient. Approximately 15% of breast malignancies will not be visualized mammographically. In the management of a palpable breast mass, a negative mammogram must not discourage biopsy of a clinically suspicious lesion. Electronically Signed By: Justine lugo/dewey:08/29/2023 13:35:25 letter sent: No_Letter ACR BI-RADS Category 1: Negative 3341F PARENCHYMAL PATTERN: (F) - The breast(s) demonstrate(s) diffuse fatty replacement. BI-RADS CATEGORY: (1) - 1 RECOMMENDATION: (ANNUAL) - Recommend routine annual screening mammography. [id number] 1 year screening LATERALITY: (B)
== END 2023-08-29 08:31 | disposition home or self-care (01) ==
LOC: DI 08:30
DX: Z12.31 Encounter for screening mammogram for malignant neoplasm of breast (principal)